=== PATIENT | male | born 2005 | race African-American/Black ===

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

== ENCOUNTER 2024-04-04 13:13 | Emergency (ER) | payer OTHER, SELFPAY ==
[2024-04-04] MEDS ORDERED: TETRACAINE HCL 0.5% 4ML OPTH ONE (15:10)
[2024-04-04] MEDS ORDERED: FLUORESCEIN SODIUM 1 MG/WRAP ONE ×2 (15:15→15:16)
--- NOTE | 2024-04-04 15:33 | ER ---
Nurse's Notes [facility] Name: Gasepr Toney Jr Age: 18 yrs Sex: Male : 2005 Arrival Date: 04/04/2024 Time: 13:13 Bed 9 Private MD: Diagnosis: Allergic rhinitis, unspecified;Unspecified acute conjunctivitis, bilateral Presentation: 04/04 13:38 Chief complaint: Patient states: Bilateral eye irritation x 2 weeks, redness, itching, ph watering, worse in the morning, also reports nasal congestion, does not take allergy medication. Coronavirus screen: Vaccine status: Patient reports being unvaccinated. Ebola Screen: No symptoms or risks identified at this time. Initial Sepsis Screen: Does the patient meet any 2 criteria? No. Patient's initial sepsis screen is negative. Does the patient have a suspected source of infection? No. Patient's initial sepsis screen is negative. Risk Assessment: Do you want to hurt yourself or someone else? Patient reports no desire to harm self or others. Onset of symptoms was April 04, 2024. 13:38 Method Of Arrival: Ambulatory ph 13:38 Acuity: PHILIP 4 ph Historical: - Allergies: 13:40 Iodine; ph - PMHx: 13:40 None; ph - Immunization history:: Adult Immunizations up to date. - Infectious Disease History:: Denies. - Social history:: Smoking status: Patient denies any tobacco usage or history of. Screenin:17 Abuse screen: Denies threats or abuse. Denies injuries from another. Nutritional ss screening: No deficits noted. Tuberculosis screening: Never had TB. Assessment: 15:17 General: Appears in no apparent distress. comfortable, Behavior is calm, cooperative. ss Pain: Denies pain. Neuro: Level of Consciousness is awake, alert, obeys commands, Oriented to person, place, time, situation. Respiratory: Airway is patent Respiratory effort is even, unlabored, Respiratory pattern is regular, symmetrical. GI: Abdomen is non-distended. : No signs and/or symptoms were reported regarding the genitourinary system. EENT: pt reports red, itchy eyes as well as nasal congestion x 2 weeks. Denies fever. Derm: Skin is intact, is healthy with good turgor, Skin is dry, Skin is pink, warm \T\ dry. normal. Vital Signs: 13:38 BP 125 / 78; Pulse 75; Resp 18; Temp 97.5; Pulse Ox 98% on R/A; Weight 55.79 kg; Height ph 5 ft. 11 in. ; 13:38 Body Mass Index 17.15 (55.79 kg, 180.34 cm) - Percentile 0.2 % ph Visual Acuity: 15:17 Left Eye Visual acuity 20/20, Normal, React To Light, Reactive To Accomodation; Right ss Eye Visual acuity 20/20, Normal, React To Light, Reactive To Accomodation; Both Eyes Visual acuity 20/20; Without Lenses; ED Course: 13:19 Patient arrived in ED. ra3 13:27 Francisco Ribeiro PA is PHCP. cp 13:27 Abdelrahman Harrison MD is Attending Physician. cp 13:40 Triage completed. ph 13:40 Arm band placed on Patient placed in waiting room, Patient notified of wait time. ph 15:11 Grace Moy RN is Primary Nurse. ss 15:17 Patient has correct armband on for positive identification. ss 15:36 No provider procedures requiring assistance completed. Patient did not have IV access ss during this emergency room visit. Administered Medications: 15:36 Drug: Tetracaine Ophthalmic Drops 0.5 % 1 drops Ophthalmic once {Note: administered by ss RAMBO Stephenson.} Route: Ophthalmic; Site: both eyes; Medication: 15:17 VIS not applicable for this client. ss Outcome: 15:32 Discharge ordered by MD. cp 15:48 Discharged to home ambulatory, with family, ss 15:48 Condition: good 15:48 Discharge instructions given to patient, family, Instructed on discharge instructions, follow up and referral plans. medication usage, Demonstrated understanding of instructions, follow-up care, medications, Prescriptions given X 2, 15:49 Patient left the ED. ss Signatures: Grace Moy RN RN Shahla Carmona RN RN Francisco Ribeiro PA PA cp Alva, Ruby ra3
--- NOTE | 2024-04-04 15:33 | EDPHYS ---
Physician Documentation [facility] Name: Gasper Toney Jr Age: 18 yrs Sex: Male : 2005 Arrival Date: 04/04/2024 Time: 13:13 Bed 9 Private MD: ED Physician Abdelrahman Harrison HPI: 04/04 13:39 This 18 yrs old Black Male presents to ER via Unassigned with complaints of BL eye cp irritation [id number]. 13:39 Onset: The symptoms/episode began/occurred 2 week(s) ago. cp 13:39 Associated signs and symptoms: Pertinent positives: nasal congestion, Pertinent cp negatives: cough, fever, sore throat, eye pain, purulent drainage. Historical: - Allergies: 13:40 Iodine; ph - PMHx: 13:40 None; ph - Immunization history:: Adult Immunizations up to date. - Infectious Disease History:: Denies. - Social history:: Smoking status: Patient denies any tobacco usage or history of. ROS: 13:45 Eyes: Positive for itching, matting, irritation, Negative for discharge, pain, redness, cp 13:45 ENT: Positive for nasal congestion, Negative for drainage from ear(s), ear pain, sore cp throat, 13:45 Respiratory: Negative for cough, shortness of breath, wheezing, 13:45 Abdomen/GI: Negative for abdominal pain, vomiting, diarrhea, constipation, Exam: 15:20 Constitutional: The patient appears in no acute distress, alert, awake, comfortable, cp non-toxic, well developed, well nourished, 15:20 Head/Face: Normocephalic, atraumatic. cp 15:20 Eyes: Periorbital structures: appear normal, Pupils: equal, round, and reactive to light and accomodation, Extraocular movements: intact throughout, Conjunctiva: normal, no exudate, no injection, Sclera: no appreciated abnormality, Lids and lashes: appear normal, bilaterally, 15:20 ENT: External ear(s): are unremarkable, Ear canal(s): are normal, clear, TM's: dullness, bilaterally, Nose: is normal, Mouth: Lips: moist, Oral mucosa: pink and intact, moist, Posterior pharynx: Airway: no evidence of obstruction, patent, 15:20 Neck: Lymph nodes: no appreciated lymphadenopathy, 15:20 Chest/axilla: Inspection: normal, 15:20 Cardiovascular: Rate: normal, 15:20 Respiratory: the patient does not display signs of respiratory distress, Respirations: normal, no use of accessory muscles, no retractions, labored breathing, is not present, Breath sounds: are clear throughout, no decreased breath sounds, 15:20 Skin: cellulitis, is not appreciated, no rash present. Vital Signs: 13:38 BP 125 / 78; Pulse 75; Resp 18; Temp 97.5; Pulse Ox 98% on R/A; Weight 55.79 kg; Height ph 5 ft. 11 in. ; 13:38 Body Mass Index 17.15 (55.79 kg, 180.34 cm) - Percentile 0.2 % ph Visual Acuity: 15:17 Left Eye Visual acuity 20/20, Normal, React To Light, Reactive To Accomodation; Right ss Eye Visual acuity 20/20, Normal, React To Light, Reactive To Accomodation; Both Eyes Visual acuity 20/20; Without Lenses; MDM: 13:37 Medical Screening Exam initiated cp 15:31 Data reviewed: vital signs, nurses notes, and as a result, I will discharge patient. cp 15:31 Differential diagnosis: conjunctivitis, foreign body. Counseling: I had a detailed cp discussion with the patient and/or guardian regarding the historical points, exam findings, and any diagnostic results supporting the discharge/admit diagnosis, the need for outpatient follow up, an opthalmologist, to return to the emergency department if symptoms worsen or persist or if there are any questions or concerns that arise at home. 04/04 13:45 Order name: Eye Tray; Complete Time: 15:12 cp 04/04 13:45 Order name: Fluoresene Opth strip; Complete Time: 15:12 cp 04/04 13:45 Order name: Visual Acuity; Complete Time: 15:17 cp Administered Medications: 15:36 Drug: Tetracaine Ophthalmic Drops 0.5 % 1 drops Ophthalmic once {Note: administered by RAMBO Jensen.} Route: Ophthalmic; Site: both eyes; Disposition: 17:35 Co-signature as Attending Physician, Abdelrahman Harrison MD I reviewed the patient's care rt provided by the Advanced Practice Provider and agree with the diagnosis and treatment plan. 04/05 14:18 Chart complete. cp Disposition Summary: 04/04/24 15:32 Discharge Ordered Notes: Location: Home cp Problem: new cp Symptoms: are unchanged cp Condition: Stable cp Diagnosis - Allergic rhinitis, unspecified cp - Unspecified acute conjunctivitis, bilateral cp Followup: cp - With: Private Physician - When: 1 week - Reason: symptoms continue Discharge Instructions: - Discharge Summary Sheet cp - Allergic Conjunctivitis, Adult cp - Allergic Rhinitis, Adult cp Forms: - Medication Reconciliation Form cp - Antibiotic Education cp - Prescription Opioid Use cp - Patient Portal Instructions cp - Leadership Thank You Letter cp Prescriptions: - Pataday Twice Daily Relief 0.1 % Ophthalmic drops - instill 1 drop OPHTHALMIC route 2 times per day separate doses by at least 6-8 cp hours; 1 unit; Refills: 0, Product Selection Permitted - Zyrtec 10 mg Oral tablet - take 1 tablet ORAL route once daily As needed; 30 tablet; Refills: 0, Product cp Selection Permitted Signatures: Grace Moy RN RN Shahla Carmona RN RN ph Francisco Ribeiro, RAMBO PA cp Abdelrahman Harrison MD MD rt
[2024-04-04 15:53] VITALS: BP 125/78; TEMP 97.5; O2SAT 98
== END 2024-04-04 15:49 | disposition home or self-care (01) ==
LOC: ER 13:13
DX: J30.9 Allergic rhinitis, unspecified (principal); H10.33 Unspecified acute conjunctivitis, bilateral
CPT/HCPCS: 99283